=== PATIENT | female | born 1935 | race African-American/Black ===

== ENCOUNTER 2017-10-28 20:55 | Inpatient (IN) ==
[2017-10-28] MEDS ORDERED: PANTOPRAZOLE 40 MG VIAL IV STA (21:42)
[2017-10-28] MEDS ORDERED: METOCLOPRAMIDE 10 MG/2 ML VIAL IV STA (21:42)
[2017-10-28] MEDS ORDERED: ONDANSETRON 4 MG/2 ML VIAL IV STA (21:42)
[2017-10-28 22:20] LABS: Basophils % 0.3 % (0.0-0.8); Eosinophils # 0.1 10*3/uL (0.0-0.87); Eosinophils % 1.2 % (0.00-10.9); Hematocrit 34.3 VOL% (35.7-47.0); Hemoglobin 11.7 GM/DL (12.0-16.0); Immature Granulocytes % 1.6 %; Immature Granulocytes Absolute 0.11 #; Lymphocytes # 1.5 10*3/uL (1.4-4.0); Lymphocytes % 21.3 % (21.3-54.2); Mean Corpuscular HGB Conc 34.1 GM/DL (32-36); Mean Corpuscular Hemoglobin 32 PG (27-34); Mean Corpuscular Volume 94.5 FL (87-102); Mean Platelet Volume 10.1 FL (9.6-12.0); Neutrophils # 4.2 10*3/uL (1.4-7.4); Neutrophils % 60.6 % (38.7-73.9); Platelet Count 179 T/CUMM (130-400); Red Blood Count 3.63 MC/CUMM (3.8-5.5); Red Cell Distribution Width 12.1 % (9.3-17.3); White Blood Count 6.9 T/CUMM (4-12)
[2017-10-28 22:37] LABS: Apearance,Urine CLEAR (Clear); Bilirubin,Urine Negative (Negative); Blood, Urine Negative (Negative); Glucose,Urine (UA) Negative (Negative); Hyaline Casts,Urine 4 /LPF (0-3); Ketones,Urine Negative (Negative); Mucus,Urine Occasional /LPF (Occasional); Nitrite,Urine Positive (Negative); Protein,Urine Negative; Squamous Epithelial Cell,Urine Occasional /HPF (0-10); Urine Color Amber (Yellow); Urine Specific Gravity 1.008 (1.001-1.035); WBC,Urine <1 /HPF (0-6)
[2017-10-28] MEDS ORDERED: LEVOFLOXACIN INJ 500 MG in PREMIX 1 EACH IV STA (22:40)
[2017-10-28 22:41] LABS: Albumin 3.5 G/DL (3.4-5.0); Osmolality,Calculated 265.1 MOS/KG (273-304); Potassium 4.5 MMOL/L (3.5-5.1); Total Protein 7.6 G/DL (6.4-8.3)
[2017-10-28 22:49] LABS: INR 0.9
[2017-10-28] MEDS ORDERED: SODIUM CHLORIDE 0.9% 1,000 ML IV STA (22:58)
[2017-10-29] MEDS ORDERED: PROMETHAZINE INJ 12.5 MG in SODIUM CHLORIDE 0.9% 50 ML IV STA (00:16)
[2017-10-29] MEDS ORDERED: MEPERIDINE 25 MG/1 ML VIAL IV STA (00:16)
[2017-10-29] MEDS ORDERED: PROMETHAZINE 25 MG/1 ML VIAL ONE (00:26)
[2017-10-29] MEDS ORDERED: ZALEPLON 5 MG CAPSULE PO PRN (02:30)
[2017-10-29] MEDS ORDERED: DEXTROSE 50% 25 GM/50 ML VIAL IV PRN (02:55)
[2017-10-29] MEDS ORDERED: GLUCAGON 1 MG VIAL IM PRN (02:55)
[2017-10-29 03:14] LABS: Basophils % 0.4 % (0.0-0.8); Eosinophils % 0.7 % (0.00-10.9); Hematocrit 30.5 VOL% (35.7-47.0); Hemoglobin 10.3 GM/DL (12.0-16.0); Immature Granulocytes % 1.5 %; Immature Granulocytes Absolute 0.08 #; Lymphocytes % 19.3 % (21.3-54.2); Mean Corpuscular HGB Conc 33.8 GM/DL (32-36); Mean Corpuscular Hemoglobin 33 PG (27-34); Mean Corpuscular Volume 96.5 FL (87-102); Mean Platelet Volume 9.5 FL (9.6-12.0); Monocytes # 0.8 10*3/uL (0.11-0.8); Monocytes % 14.1 % (1.7-12.7); Neutrophils # 3.4 10*3/uL (1.4-7.4); Platelet Count 155 T/CUMM (130-400); Red Blood Count 3.16 MC/CUMM (3.8-5.5); Red Cell Distribution Width 11.9 % (9.3-17.3); White Blood Count 5.4 T/CUMM (4-12)
[2017-10-29 03:39] LABS: Calcium 8.4 MG/DL (8.5-10.1); Osmolality,Calculated 270.7 MOS/KG (273-304); Potassium 4.3 MMOL/L (3.5-5.1)
[2017-10-29] MEDS: INSULIN REGULAR 100 UNIT/ML SUBCUT SCH ×4 (08:04→20:01)
[2017-10-29] MEDS: ENOXAPARIN 30 MG/0.3 ML SYRINGE SUBCUT SCH (08:59)
[2017-10-29] MEDS: FAMOTIDINE 20 MG TABLET PO SCH (08:59)
[2017-10-29] MEDS: DOCUSATE SODIUM 100 MG CAPSULE PO SCH ×2 (08:59→20:25)
[2017-10-29] MEDS: ONDANSETRON 4 MG/2 ML VIAL IV PRN (11:15)
[2017-10-29] MEDS: BISACODYL 5 MG TABLET PO PRN (20:25)
[2017-10-29] MEDS: SERTRALINE 50 MG TABLET PO SCH (20:25)
[2017-10-29] MEDS: LEVOFLOXACIN INJ 250 MG in PREMIX 1 EACH IV SCH (22:42)
[2017-10-30 06:39] LABS: Basophils % 0.3 % (0.0-0.8); Eosinophils # 0.1 10*3/uL (0.0-0.87); Eosinophils % 1.6 % (0.00-10.9); Hematocrit 27.7 VOL% (35.7-47.0); Hemoglobin 9.3 GM/DL (12.0-16.0); Immature Granulocytes % 1.3 %; Immature Granulocytes Absolute 0.05 #; Lymphocytes % 25.2 % (21.3-54.2); Mean Corpuscular HGB Conc 33.6 GM/DL (32-36); Mean Corpuscular Hemoglobin 32 PG (27-34); Mean Corpuscular Volume 95.8 FL (87-102); Mean Platelet Volume 9.6 FL (9.6-12.0); Monocytes # 0.7 10*3/uL (0.11-0.8); Monocytes % 18.8 % (1.7-12.7); Neutrophils % 52.8 % (38.7-73.9); Platelet Count 134 T/CUMM (130-400); Red Blood Count 2.89 MC/CUMM (3.8-5.5); Red Cell Distribution Width 11.9 % (9.3-17.3); White Blood Count 3.8 T/CUMM (4-12)
[2017-10-30 07:06] LABS: Band Neutrophils 3 % (0-10); Eosinophils 3 % (0-10); Lymphocytes 24 % (20-55); Platelet Estimate Adequate; Segmented Neutrophils 56 % (50-85); Total Cells Counted 100
[2017-10-30 07:07] LABS: Anisocytosis 1+; Macrocytosis 1+; Smudge Cells Few
[2017-10-30] MEDS: ONDANSETRON 4 MG/2 ML VIAL IV PRN (07:09)
[2017-10-30 07:11] LABS: Calcium 8.5 MG/DL (8.5-10.1); Osmolality,Calculated 272.4 MOS/KG (273-304); Potassium 4.2 MMOL/L (3.5-5.1)
[2017-10-30] MEDS: DOCUSATE SODIUM 100 MG CAPSULE PO SCH ×2 (09:20→20:19)
[2017-10-30] MEDS: FAMOTIDINE 20 MG TABLET PO SCH (09:20)
[2017-10-30] MEDS: INSULIN REGULAR 100 UNIT/ML SUBCUT SCH ×4 (09:20→20:16)
[2017-10-30] MEDS: ENOXAPARIN 30 MG/0.3 ML SYRINGE SUBCUT SCH (09:20)
[2017-10-30] MEDS: BISACODYL 5 MG TABLET PO PRN (14:15)
[2017-10-30] MEDS: SERTRALINE 50 MG TABLET PO SCH (20:19)
[2017-10-30] MEDS ORDERED: SIMVASTATIN 20 MG TABLET PO SCH (21:00)
[2017-10-30] MEDS: LEVOFLOXACIN INJ 250 MG in PREMIX 1 EACH IV SCH (23:21)
[2017-10-31 06:10] LABS: Basophils % 0.3 % (0.0-0.8); Eosinophils # 0.1 10*3/uL (0.0-0.87); Eosinophils % 1.8 % (0.00-10.9); Hematocrit 27.8 VOL% (35.7-47.0); Hemoglobin 9.5 GM/DL (12.0-16.0); Immature Granulocytes % 1.6 %; Immature Granulocytes Absolute 0.06 #; Lymphocytes # 1.4 10*3/uL (1.4-4.0); Lymphocytes % 35.3 % (21.3-54.2); Mean Corpuscular HGB Conc 34.2 GM/DL (32-36); Mean Corpuscular Hemoglobin 32 PG (27-34); Mean Corpuscular Volume 94.6 FL (87-102); Monocytes # 0.8 10*3/uL (0.11-0.8); Neutrophils # 1.6 10*3/uL (1.4-7.4); Platelet Count 137 T/CUMM (130-400); Red Blood Count 2.94 MC/CUMM (3.8-5.5); Red Cell Distribution Width 11.9 % (9.3-17.3); White Blood Count 3.9 T/CUMM (4-12)
[2017-10-31 06:40] LABS: Calcium 8.6 MG/DL (8.5-10.1); Osmolality,Calculated 273.1 MOS/KG (273-304); Potassium 4.1 MMOL/L (3.5-5.1)
[2017-10-31 06:43] LABS: Risk Ratio 2.1; VLDL CHOLESTEROL 11.2 MG/DL
[2017-10-31 07:05] LABS: Atypical Lymphocytes Few; Band Neutrophils 5 % (0-10); Lymphocytes 47 % (20-55); Macrocytosis 2+; Platelet Estimate Normal; Segmented Neutrophils 40 % (50-85); Total Cells Counted 100
[2017-10-31] MEDS: INSULIN REGULAR 100 UNIT/ML SUBCUT SCH ×4 (07:19→20:30)
[2017-10-31] MEDS: ONDANSETRON 4 MG/2 ML VIAL IV PRN ×2 (08:14→17:14)
[2017-10-31] MEDS: FAMOTIDINE 20 MG TABLET PO SCH (09:27)
[2017-10-31] MEDS: ENOXAPARIN 30 MG/0.3 ML SYRINGE SUBCUT SCH (09:27)
[2017-10-31] MEDS: DOCUSATE SODIUM 100 MG CAPSULE PO SCH ×3 (09:27→20:29)
[2017-10-31] MEDS: PANTOPRAZOLE 40 MG TABLET PO SCH (15:14)
[2017-10-31] MEDS: LEVOFLOXACIN 250 MG TABLET PO SCH (15:14)
[2017-10-31] MEDS: SERTRALINE 50 MG TABLET PO SCH (20:30)
[2017-11-01 06:30] LABS: Basophils % 0.3 % (0.0-0.8); Eosinophils # 0.1 10*3/uL (0.0-0.87); Eosinophils % 1.6 % (0.00-10.9); Hemoglobin 9.1 GM/DL (12.0-16.0); Immature Granulocytes % 0.8 %; Immature Granulocytes Absolute 0.03 #; Lymphocytes # 1.1 10*3/uL (1.4-4.0); Lymphocytes % 29.4 % (21.3-54.2); Mean Corpuscular HGB Conc 32.5 GM/DL (32-36); Mean Corpuscular Hemoglobin 32 PG (27-34); Mean Corpuscular Volume 97.2 FL (87-102); Mean Platelet Volume 9.8 FL (9.6-12.0); Monocytes # 0.6 10*3/uL (0.11-0.8); Monocytes % 16.2 % (1.7-12.7); Neutrophils % 51.7 % (38.7-73.9); Platelet Count 124 T/CUMM (130-400); Red Blood Count 2.88 MC/CUMM (3.8-5.5); Red Cell Distribution Width 11.7 % (9.3-17.3); White Blood Count 3.8 T/CUMM (4-12)
[2017-11-01 07:13] LABS: Calcium 8.3 MG/DL (8.5-10.1); Osmolality,Calculated 267.5 MOS/KG (273-304); Potassium 4.1 MMOL/L (3.5-5.1)
[2017-11-01] MEDS: INSULIN REGULAR 100 UNIT/ML SUBCUT SCH ×4 (07:30→22:19)
[2017-11-01 07:42] LABS: Band Neutrophils 2 % (0-10); Eosinophils 4 % (0-10); Lymphocytes 34 % (20-55); Segmented Neutrophils 45 % (50-85); Total Cells Counted 100
[2017-11-01 07:43] LABS: Atypical Lymphocytes Few; Hypochromasia 1+; Macrocytosis Slight; Ovalocytes Slight; Platelet Estimate Normal
[2017-11-01] MEDS: ONDANSETRON 4 MG/2 ML VIAL IV PRN (08:03)
[2017-11-01] MEDS: LEVOFLOXACIN 250 MG TABLET PO SCH (10:31)
[2017-11-01] MEDS: DOCUSATE SODIUM 100 MG CAPSULE PO SCH ×2 (10:31→22:19)
[2017-11-01] MEDS: PANTOPRAZOLE 40 MG TABLET PO SCH (10:31)
[2017-11-01] MEDS: ENOXAPARIN 30 MG/0.3 ML SYRINGE SUBCUT SCH (10:31)
[2017-11-01] MEDS: FAMOTIDINE 20 MG TABLET PO SCH (10:31)
[2017-11-01] MEDS: PHENAZOPYRIDINE 95 MG TABLET PO SCH (16:47)
[2017-11-01] MEDS: SERTRALINE 50 MG TABLET PO SCH (22:19)
[2017-11-02] MEDS: BISACODYL 5 MG TABLET PO PRN (02:11)
[2017-11-02 06:46] LABS: Basophils % 0.2 % (0.0-0.8); Eosinophils # 0.1 10*3/uL (0.0-0.87); Eosinophils % 2.5 % (0.00-10.9); Hematocrit 28.3 VOL% (35.7-47.0); Hemoglobin 9.5 GM/DL (12.0-16.0); Immature Granulocytes % 0.7 %; Immature Granulocytes Absolute 0.03 #; Lymphocytes # 1.4 10*3/uL (1.4-4.0); Lymphocytes % 30.8 % (21.3-54.2); Mean Corpuscular HGB Conc 33.6 GM/DL (32-36); Mean Corpuscular Hemoglobin 32 PG (27-34); Mean Corpuscular Volume 95.3 FL (87-102); Mean Platelet Volume 9.5 FL (9.6-12.0); Monocytes # 0.5 10*3/uL (0.11-0.8); Monocytes % 11.5 % (1.7-12.7); Neutrophils # 2.4 10*3/uL (1.4-7.4); Neutrophils % 54.3 % (38.7-73.9); Platelet Count 127 T/CUMM (130-400); Red Blood Count 2.97 MC/CUMM (3.8-5.5); Red Cell Distribution Width 11.6 % (9.3-17.3); White Blood Count 4.4 T/CUMM (4-12)
[2017-11-02 07:19] LABS: Calcium 8.1 MG/DL (8.5-10.1); Osmolality,Calculated 258.1 MOS/KG (273-304); Potassium 4.3 MMOL/L (3.5-5.1)
[2017-11-02] MEDS: INSULIN REGULAR 100 UNIT/ML SUBCUT SCH ×4 (07:34→20:07)
[2017-11-02] MEDS: PHENAZOPYRIDINE 95 MG TABLET PO SCH ×3 (08:37→17:41)
[2017-11-02] MEDS: DOCUSATE SODIUM 100 MG CAPSULE PO SCH ×2 (08:40→21:28)
[2017-11-02] MEDS: LEVOFLOXACIN 250 MG TABLET PO SCH (08:40)
[2017-11-02] MEDS: PANTOPRAZOLE 40 MG TABLET PO SCH (08:41)
[2017-11-02] MEDS: FAMOTIDINE 20 MG TABLET PO SCH (08:41)
[2017-11-02] MEDS: POLYETHYLENE GLYCOL POWDER 17 GM PACK PO PRN (08:42)
[2017-11-02] MEDS: ONDANSETRON 4 MG/2 ML VIAL IV PRN (10:50)
[2017-11-02] MEDS: SERTRALINE 50 MG TABLET PO SCH (21:28)
[2017-11-03 05:11] LABS: Basophils % 0.2 % (0.0-0.8); Eosinophils # 0.1 10*3/uL (0.0-0.87); Eosinophils % 2.9 % (0.00-10.9); Hematocrit 25.4 VOL% (35.7-47.0); Hemoglobin 8.7 GM/DL (12.0-16.0); Immature Granulocytes % 0.9 %; Immature Granulocytes Absolute 0.04 #; Lymphocytes # 1.4 10*3/uL (1.4-4.0); Lymphocytes % 29.9 % (21.3-54.2); Mean Corpuscular HGB Conc 34.3 GM/DL (32-36); Mean Corpuscular Hemoglobin 32 PG (27-34); Mean Platelet Volume 9.6 FL (9.6-12.0); Monocytes # 0.5 10*3/uL (0.11-0.8); Monocytes % 11.9 % (1.7-12.7); Neutrophils # 2.5 10*3/uL (1.4-7.4); Neutrophils % 54.2 % (38.7-73.9); Platelet Count 117 T/CUMM (130-400); Red Blood Count 2.73 MC/CUMM (3.8-5.5); Red Cell Distribution Width 11.4 % (9.3-17.3); White Blood Count 4.6 T/CUMM (4-12)
[2017-11-03 05:33] LABS: Calcium 8.1 MG/DL (8.5-10.1); Osmolality,Calculated 260.9 MOS/KG (273-304); Potassium 4.6 MMOL/L (3.5-5.1)
[2017-11-03] MEDS: INSULIN REGULAR 100 UNIT/ML SUBCUT SCH ×4 (08:13→20:34)
[2017-11-03] MEDS: DOCUSATE SODIUM 100 MG CAPSULE PO SCH ×2 (09:55→20:33)
[2017-11-03] MEDS: PHENAZOPYRIDINE 95 MG TABLET PO SCH ×3 (09:55→17:08)
[2017-11-03] MEDS: PANTOPRAZOLE 40 MG TABLET PO SCH (12:49)
[2017-11-03] MEDS: LEVOFLOXACIN 250 MG TABLET PO SCH (12:49)
[2017-11-03] MEDS: FAMOTIDINE 20 MG TABLET PO SCH (12:49)
[2017-11-03] MEDS: SODIUM CHLORIDE 0.9% 1,000 ML IV SCH (13:43)
[2017-11-03] MEDS: BISACODYL 5 MG TABLET PO PRN (15:34)
[2017-11-03] MEDS: POLYETHYLENE GLYCOL POWDER 17 GM PACK PO PRN (18:49)
[2017-11-03] MEDS: SERTRALINE 50 MG TABLET PO SCH (20:34)
[2017-11-04 05:54] LABS: Calcium 8.6 MG/DL (8.5-10.1); Osmolality,Calculated 266.5 MOS/KG (273-304); Potassium 4.5 MMOL/L (3.5-5.1)
[2017-11-04] MEDS: PHENAZOPYRIDINE 95 MG TABLET PO SCH ×3 (08:00→18:37)
[2017-11-04] MEDS: INSULIN REGULAR 100 UNIT/ML SUBCUT SCH ×4 (08:02→21:13)
[2017-11-04] MEDS ORDERED: LIDOCAINE 2% 5 ML VIAL ONE (10:00)
[2017-11-04] MEDS ORDERED: PROPOFOL 200 MG/20 ML VIAL IV ONE (10:00)
[2017-11-04] MEDS ORDERED: BISACODYL 5 MG TABLET PO ONE (12:00)
[2017-11-04] MEDS: LEVOFLOXACIN 250 MG TABLET PO SCH (12:45)
[2017-11-04] MEDS: FAMOTIDINE 20 MG TABLET PO SCH (12:45)
[2017-11-04] MEDS: DOCUSATE SODIUM 100 MG CAPSULE PO SCH ×2 (12:46→21:12)
[2017-11-04] MEDS: PANTOPRAZOLE 40 MG TABLET PO SCH (12:46)
[2017-11-04] MEDS ORDERED: SODIUM CHLORIDE 0.9% 1,000 ML IV SCH (14:30)
[2017-11-04] MEDS: SODIUM CHLORIDE 0.9% 1,000 ML IV SCH (14:57)
[2017-11-04] MEDS ORDERED: POLYETHYLENE GLYCOL POWDER 255 GM BOTTLE PO ONE (18:00)
[2017-11-04] MEDS: SERTRALINE 50 MG TABLET PO SCH (21:13)
[2017-11-05 06:24] LABS: Basophils % 0.4 % (0.0-0.8); Eosinophils # 0.1 10*3/uL (0.0-0.87); Eosinophils % 1.7 % (0.00-10.9); Hematocrit 29.8 VOL% (35.7-47.0); Hemoglobin 9.9 GM/DL (12.0-16.0); Immature Granulocytes % 1.1 %; Immature Granulocytes Absolute 0.06 #; Lymphocytes # 1.4 10*3/uL (1.4-4.0); Mean Corpuscular HGB Conc 33.2 GM/DL (32-36); Mean Corpuscular Hemoglobin 32 PG (27-34); Mean Corpuscular Volume 96.1 FL (87-102); Mean Platelet Volume 9.7 FL (9.6-12.0); Monocytes # 0.6 10*3/uL (0.11-0.8); Monocytes % 10.9 % (1.7-12.7); Neutrophils # 3.2 10*3/uL (1.4-7.4); Neutrophils % 58.9 % (38.7-73.9); Platelet Count 123 T/CUMM (130-400); Red Cell Distribution Width 11.8 % (9.3-17.3); White Blood Count 5.3 T/CUMM (4-12)
[2017-11-05 06:51] LABS: Calcium 8.2 MG/DL (8.5-10.1); Osmolality,Calculated 255.2 MOS/KG (273-304); Potassium 3.6 MMOL/L (3.5-5.1)
[2017-11-05] MEDS: INSULIN REGULAR 100 UNIT/ML SUBCUT SCH ×4 (08:06→22:06)
[2017-11-05] MEDS: DOCUSATE SODIUM 100 MG CAPSULE PO SCH ×2 (10:25→22:06)
[2017-11-05] MEDS: PHENAZOPYRIDINE 95 MG TABLET PO SCH ×3 (10:25→17:42)
[2017-11-05] MEDS: FAMOTIDINE 20 MG TABLET PO SCH (10:25)
[2017-11-05] MEDS: LEVOFLOXACIN 250 MG TABLET PO SCH (10:26)
[2017-11-05] MEDS: PANTOPRAZOLE 40 MG TABLET PO SCH (10:26)
[2017-11-05] MEDS: ONDANSETRON 4 MG/2 ML VIAL IV PRN (10:57)
[2017-11-05] MEDS: SODIUM CHLORIDE 1 GM TABLET PO SCH ×2 (14:58→22:06)
[2017-11-05] MEDS ORDERED: MAGNESIUM CITRATE 300 ML BOTTLE PO ONE (18:00)
[2017-11-05] MEDS: SERTRALINE 50 MG TABLET PO SCH (22:06)
[2017-11-06 06:08] LABS: Basophils % 0.2 % (0.0-0.8); Eosinophils # 0.1 10*3/uL (0.0-0.87); Eosinophils % 2.2 % (0.00-10.9); Hemoglobin 8.9 GM/DL (12.0-16.0); Immature Granulocytes Absolute 0.04 #; Lymphocytes % 24.1 % (21.3-54.2); Mean Corpuscular HGB Conc 34.2 GM/DL (32-36); Mean Corpuscular Hemoglobin 32 PG (27-34); Mean Corpuscular Volume 92.9 FL (87-102); Mean Platelet Volume 9.5 FL (9.6-12.0); Monocytes # 0.6 10*3/uL (0.11-0.8); Monocytes % 14.7 % (1.7-12.7); Neutrophils # 2.3 10*3/uL (1.4-7.4); Neutrophils % 57.8 % (38.7-73.9); Platelet Count 116 T/CUMM (130-400); Red Cell Distribution Width 11.9 % (9.3-17.3)
[2017-11-06 06:32] LABS: Calcium 8.1 MG/DL (8.5-10.1); Osmolality,Calculated 258.8 MOS/KG (273-304); Potassium 3.7 MMOL/L (3.5-5.1)
[2017-11-06] MEDS: INSULIN REGULAR 100 UNIT/ML SUBCUT SCH ×4 (07:14→21:20)
[2017-11-06] MEDS ORDERED: LIDOCAINE 1% 5 ML VIAL ONE (09:00)
[2017-11-06] MEDS ORDERED: PROPOFOL 200 MG/20 ML VIAL IV ONE (09:00)
[2017-11-06] MEDS: DOCUSATE SODIUM 100 MG CAPSULE PO SCH ×2 (10:14→21:20)
[2017-11-06] MEDS: PHENAZOPYRIDINE 95 MG TABLET PO SCH ×3 (10:14→18:56)
[2017-11-06] MEDS: FAMOTIDINE 20 MG TABLET PO SCH (10:14)
[2017-11-06] MEDS: PANTOPRAZOLE 40 MG TABLET PO SCH (10:15)
[2017-11-06] MEDS: SODIUM CHLORIDE 1 GM TABLET PO SCH ×2 (10:15→21:20)
[2017-11-06] MEDS: LEVOFLOXACIN 250 MG TABLET PO SCH (12:51)
[2017-11-06] MEDS: SERTRALINE 50 MG TABLET PO SCH (21:20)
[2017-11-07] MEDS: INSULIN REGULAR 100 UNIT/ML SUBCUT SCH ×4 (07:46→20:41)
[2017-11-07] MEDS: SODIUM CHLORIDE 1 GM TABLET PO SCH ×2 (09:18→20:43)
[2017-11-07] MEDS: LEVOFLOXACIN 250 MG TABLET PO SCH (09:18)
[2017-11-07] MEDS: FAMOTIDINE 20 MG TABLET PO SCH (09:18)
[2017-11-07] MEDS: DOCUSATE SODIUM 100 MG CAPSULE PO SCH ×2 (09:18→20:43)
[2017-11-07] MEDS: PHENAZOPYRIDINE 95 MG TABLET PO SCH ×3 (09:18→17:41)
[2017-11-07] MEDS: PANTOPRAZOLE 40 MG TABLET PO SCH (09:18)
[2017-11-07] MEDS ORDERED: MYLANTA/LIDO VISC 2:1 300 ML BOTTLE SWISH/SPIT PRN (13:18)
[2017-11-07] MEDS ORDERED: PHENOL 1.4% THROAT SPRAY 177 ML BOTTLE PO PRN (13:18)
[2017-11-07] MEDS: SERTRALINE 50 MG TABLET PO SCH (20:43)
[2017-11-08 05:55] LABS: Basophils % 0.3 % (0.0-0.8); Eosinophils # 0.1 10*3/uL (0.0-0.87); Eosinophils % 2.3 % (0.00-10.9); Hematocrit 25.2 VOL% (35.7-47.0); Hemoglobin 8.3 GM/DL (12.0-16.0); Immature Granulocytes % 0.6 %; Immature Granulocytes Absolute 0.02 #; Lymphocytes # 1.1 10*3/uL (1.4-4.0); Lymphocytes % 30.5 % (21.3-54.2); Mean Corpuscular HGB Conc 32.9 GM/DL (32-36); Mean Corpuscular Hemoglobin 32 PG (27-34); Mean Corpuscular Volume 96.9 FL (87-102); Mean Platelet Volume 9.3 FL (9.6-12.0); Monocytes # 0.5 10*3/uL (0.11-0.8); Monocytes % 14.4 % (1.7-12.7); Neutrophils # 1.8 10*3/uL (1.4-7.4); Neutrophils % 51.9 % (38.7-73.9); Platelet Count 107 T/CUMM (130-400); Red Cell Distribution Width 12.4 % (9.3-17.3); White Blood Count 3.5 T/CUMM (4-12)
[2017-11-08 06:23] LABS: Calcium 8.3 MG/DL (8.5-10.1); Osmolality,Calculated 267.1 MOS/KG (273-304); Potassium 3.9 MMOL/L (3.5-5.1)
[2017-11-08] MEDS: INSULIN REGULAR 100 UNIT/ML SUBCUT SCH ×2 (08:01→12:23)
[2017-11-08] MEDS: PANTOPRAZOLE 40 MG TABLET PO SCH (10:08)
[2017-11-08] MEDS: LEVOFLOXACIN 250 MG TABLET PO SCH (10:08)
[2017-11-08] MEDS: PHENAZOPYRIDINE 95 MG TABLET PO SCH ×2 (10:08→12:36)
[2017-11-08] MEDS: DOCUSATE SODIUM 100 MG CAPSULE PO SCH (10:09)
[2017-11-08] MEDS: FAMOTIDINE 20 MG TABLET PO SCH (10:09)
[2017-11-08] MEDS: SODIUM CHLORIDE 1 GM TABLET PO SCH (10:09)
[2017-11-08 11:21] VITALS: BP 118/65
== END 2017-11-08 15:35 | disposition home or self-care (01) | DRG 392 ==
LOC: N.ED 20:55 → N.EDINP 10-29 02:30 → SUATTDRO 10-29 02:30 → N.3E 10-29 03:13
PROVIDERS: ATTEND Internal Medicine

== ENCOUNTER 2018-03-29 18:08 | Inpatient (IN) ==
[2018-03-29] MEDS ORDERED: LORazepam 1 MG TABLET PO PRN (21:21)
[2018-03-29] MEDS ORDERED: ACETAMINOPHEN 325 MG TABLET PO PRN (21:23)
[2018-03-29] MEDS ORDERED: DEXTROSE 5% NACL 0.45% 1,000 ML IV SCH (21:30)
[2018-03-30 03:35] LABS: Apearance,Urine CLEAR (Clear); Bacteria,Urine Occasional /HPF (Few); Bilirubin,Urine Negative (Negative); Blood, Urine Negative (Negative); Glucose,Urine (UA) Negative (Negative); Hyaline Casts,Urine 1 /LPF (0-3); Ketones,Urine Negative (Negative); Mucus,Urine Occasional /LPF (Occasional); Nitrite,Urine Negative (Negative); Protein,Urine Negative; RBC,Urine 1 /HPF (0-4); Squamous Epithelial Cell,Urine Occasional /HPF (0-10); Urine Color Yellow (Yellow); Urine Specific Gravity 1.014 (1.001-1.035); Urine Urobilinogen < 2.0 EU/DL (0.2-1.0); WBC,Urine 6 /HPF (0-6)
[2018-03-30 05:28] LABS: Basophils % 0.7 % (0.0-0.8); Eosinophils # 0.1 10*3/uL (0.0-0.87); Hematocrit 28.6 VOL% (35.7-47.0); Hemoglobin 9.2 GM/DL (12.0-16.0); Immature Granulocytes % 0.3 %; Immature Granulocytes Absolute 0.01 #; Lymphocytes # 1.2 10*3/uL (1.4-4.0); Mean Corpuscular HGB Conc 32.2 GM/DL (32-36); Mean Corpuscular Hemoglobin 31 PG (27-34); Mean Corpuscular Volume 97.3 FL (87-102); Mean Platelet Volume 10.5 FL (9.6-12.0); Monocytes # 0.4 10*3/uL (0.11-0.8); Monocytes % 14.5 % (1.7-12.7); Neutrophils # 1.3 10*3/uL (1.4-7.4); Neutrophils % 42.5 % (38.7-73.9); Platelet Count 128 T/CUMM (130-400); Red Blood Count 2.94 MC/CUMM (3.8-5.5); Red Cell Distribution Width 12.7 % (9.3-17.3)
[2018-03-30 05:47] LABS: Albumin 2.8 G/DL (3.4-5.0); Osmolality,Calculated 274.8 MOS/KG (273-304); Potassium 2.9 MMOL/L (3.5-5.1); Total Protein 5.8 G/DL (6.4-8.3)
[2018-03-30 05:48] LABS: Hypochromasia 1+
[2018-03-30 05:49] LABS: Macrocytosis Slight; Platelet Estimate Adequate
[2018-03-30] MEDS: amLODIPine 10 MG TABLET PO SCH (08:33)
[2018-03-30] MEDS: FUROSEMIDE 20 MG TABLET PO SCH ×2 (08:33→15:48)
[2018-03-30] MEDS: PANTOPRAZOLE 40 MG TABLET PO SCH (08:33)
[2018-03-30] MEDS ORDERED: ENOXAPARIN 40 MG/0.4 ML SYRINGE SUBCUT SCH (09:00)
[2018-03-30 09:34] LABS: Calcium 8.2 MG/DL (8.5-10.1); Potassium 3.4 MMOL/L (3.5-5.1)
[2018-03-30] MEDS: BISACODYL 5 MG TABLET PO PRN (19:15)
[2018-03-30] MEDS: ZALEPLON 5 MG CAPSULE PO PRN (23:40)
[2018-03-31 06:37] LABS: Basophils % 0.3 % (0.0-0.8); Eosinophils # 0.2 10*3/uL (0.0-0.87); Eosinophils % 5.4 % (0.00-10.9); Hematocrit 29.6 VOL% (35.7-47.0); Hemoglobin 9.4 GM/DL (12.0-16.0); Immature Granulocytes % 0.6 %; Immature Granulocytes Absolute 0.02 #; Lymphocytes # 1.3 10*3/uL (1.4-4.0); Lymphocytes % 37.5 % (21.3-54.2); Mean Corpuscular HGB Conc 31.8 GM/DL (32-36); Mean Corpuscular Hemoglobin 31 PG (27-34); Mean Corpuscular Volume 98.7 FL (87-102); Mean Platelet Volume 10.4 FL (9.6-12.0); Monocytes # 0.5 10*3/uL (0.11-0.8); Monocytes % 15.3 % (1.7-12.7); Neutrophils # 1.4 10*3/uL (1.4-7.4); Neutrophils % 40.9 % (38.7-73.9); Platelet Count 133 T/CUMM (130-400); Red Cell Distribution Width 12.9 % (9.3-17.3); White Blood Count 3.3 T/CUMM (4-12)
[2018-03-31 07:00] LABS: Anisocytosis Slight; Platelet Estimate Adequate
[2018-03-31 07:01] LABS: Potassium 3.2 MMOL/L (3.5-5.1)
[2018-03-31] MEDS ORDERED: LIDOCAINE 2% 5 ML VIAL ONE (09:00)
[2018-03-31] MEDS ORDERED: PROPOFOL 200 MG/20 ML VIAL IV ONE (09:00)
[2018-03-31] MEDS: amLODIPine 10 MG TABLET PO SCH (09:43)
[2018-03-31] MEDS: FUROSEMIDE 20 MG TABLET PO SCH ×2 (09:43→14:59)
[2018-03-31] MEDS: PANTOPRAZOLE 40 MG TABLET PO SCH (09:43)
[2018-03-31] MEDS: BISACODYL 5 MG TABLET PO PRN (20:30)
[2018-03-31] MEDS: ZALEPLON 5 MG CAPSULE PO PRN (23:40)
[2018-04-01] MEDS: ONDANSETRON 4 MG/2 ML VIAL IV PRN ×2 (01:01→09:07)
[2018-04-01] MEDS: FUROSEMIDE 20 MG TABLET PO SCH (09:07)
[2018-04-01] MEDS: PANTOPRAZOLE 40 MG TABLET PO SCH (09:07)
[2018-04-01] MEDS: amLODIPine 10 MG TABLET PO SCH (09:07)
[2018-04-01 11:52] VITALS: BP 146/74
== END 2018-04-01 13:00 | disposition home or self-care (01) | DRG 392 ==
LOC: N.2E 19:49 → SUATTDRO 19:49
PROVIDERS: ADMIT Internal Medicine; ATTEND Internal Medicine Geriatric Medicine

== ENCOUNTER 2019-05-07 22:22 | Inpatient (IN) ==
[2019-05-08] LABS: Basophils % 0.3 % (0.0-0.8); Eosinophils % 0.2 % (0.00-10.9); Hematocrit 34.8 VOL% (35.7-47.0); Immature Granulocytes % 4.4 %; Immature Granulocytes Absolute 0.46 #; Lymphocytes % 9.7 % (21.3-54.2); Mean Corpuscular HGB Conc 34.5 GM/DL (32-36); Mean Platelet Volume 10.2 FL (9.6-12.0); Monocytes % 7.4 % (1.7-12.7); Platelet Count 132 T/CUMM (130-400); Red Blood Count 3.74 MC/CUMM (3.8-5.5); Red Cell Distribution Width 12.7 % (9.3-17.3); White Blood Count 10.5 T/CUMM (4-12)
[2019-05-08 00:19] LABS: Alanine Aminotransferase 16 U/L (13-56); Albumin 3.8 G/DL (3.4-5.0); Alkaline Phosphatase 53 U/L (45-117); Aspartate Amino Transferase 28 U/L (0-37); Blood Urea Nitrogen 74 MG/DL (7-18); Calcium 9.6 MG/DL (8.5-10.1); Estimated Glom Filtration Rate 19 ML/MIN; Glucose 147 MG/DL (74-106); Osmolality,Calculated 284.8 MOS/KG (273-304); Total Protein 7.5 G/DL (6.4-8.3)
[2019-05-08 00:22] LABS: Troponin I 0.189 NG/ML (0.00-0.045)
[2019-05-08] MEDS ORDERED: SODIUM CHLORIDE 0.9% 1,000 ML IV STA (00:28)
[2019-05-08 00:51] LABS: Apearance,Urine Cloudy (Clear); Glucose,Urine (UA) Negative (Negative); Protein,Urine 30 MG/DL; Urine Color Dark Yellow (Yellow); Urine Specific Gravity 1.035 (1.001-1.035)
[2019-05-08 00:52] LABS: Bilirubin,Urine 2+ mg/dL (Negative); Blood, Urine Negative (Negative); Ketones,Urine Negative (Negative); Nitrite,Urine Negative (Negative)
[2019-05-08 00:54] LABS: Amorphous Crystals,Urine Many /HPF (Few); RBC,Urine 6 /HPF (0-4); Squamous Epithelial Cell,Urine Moderate /HPF (0-10); WBC,Urine 6 /HPF (0-6)
[2019-05-08] MEDS ORDERED: ONDANSETRON 4 MG/2 ML VIAL IV PRN (03:19)
[2019-05-08] MEDS ORDERED: GLUCAGON 1 MG VIAL IM PRN (03:19)
[2019-05-08] MEDS ORDERED: DEXTROSE 50% 25 GM/50 ML SYRINGE IV PRN (03:19)
[2019-05-08] MEDS ORDERED: LEVOFLOXACIN INJ 500 MG in PREMIX 1 EACH IV ONE (03:30)
[2019-05-08] MEDS: SODIUM CHLORIDE 0.9% 1,000 ML IV SCH ×2 (03:40→16:50)
[2019-05-08 04:27] LABS: Thyroid Stimulating Hormone 2.79 uIU/ml (0.358-3.74)
[2019-05-08 07:12] LABS: Basophils % 0.3 % (0.0-0.8); Eosinophils % 0.3 % (0.00-10.9); Hematocrit 34.2 VOL% (35.7-47.0); Hemoglobin 11.5 GM/DL (12.0-16.0); Immature Granulocytes Absolute 0.37 #; Lymphocytes # 0.9 10*3/uL (1.4-4.0); Lymphocytes % 9.7 % (21.3-54.2); Mean Corpuscular HGB Conc 33.6 GM/DL (32-36); Mean Corpuscular Volume 95.3 FL (87-102); Mean Platelet Volume 10.2 FL (9.6-12.0); Monocytes % 7.5 % (1.7-12.7); Neutrophils % 78.2 % (38.7-73.9); Platelet Count 117 T/CUMM (130-400); Red Blood Count 3.59 MC/CUMM (3.8-5.5); Red Cell Distribution Width 12.8 % (9.3-17.3); White Blood Count 9.2 T/CUMM (4-12)
[2019-05-08] MEDS: INSULIN LISPRO 100 UNIT/ML SUBCUT SCH ×4 (07:24→23:02)
[2019-05-08 07:27] LABS: Calcium 9.1 MG/DL (8.5-10.1); Osmolality,Calculated 286.4 MOS/KG (273-304)
[2019-05-08 07:31] LABS: Risk Ratio 3.16; VLDL CHOLESTEROL 33.8 MG/DL
[2019-05-08] MEDS: ACETAMINOPHEN 325 MG TABLET PO PRN ×2 (10:14→23:43)
[2019-05-08] MEDS: ENOXAPARIN 30 MG/0.3 ML SYRINGE SUBCUT SCH (10:15)
[2019-05-08 12:05] LABS: Barbiturates Screen,Urine Negative (Negative); Benzodiazepines Screen,Urine Negative (Negative); Cannabinoid Screen,Urine Negative (Negative); Opiate Screen,Urine Positive (Negative); Phencyclidine Screen,Urine Negative (Negative)
[2019-05-08] MEDS: amLODIPine 10 MG TABLET PO SCH (13:11)
[2019-05-08] MEDS ORDERED: MAGNESIUM SULF RIDER 2 GM in PREMIX 1 EACH IV PRN (14:07)
[2019-05-08] MEDS ORDERED: MAGNESIUM SULF RIDER 4 GM in PREMIX 1 EACH IV PRN (14:07)
[2019-05-08] MEDS ORDERED: POTASSIUM CHLORIDE 20 MEQ TABLET PO PRN (14:07)
[2019-05-08] MEDS: FUROSEMIDE 20 MG TABLET PO SCH (16:43)
[2019-05-09] MEDS: SODIUM CHLORIDE 0.9% 1,000 ML IV SCH ×2 (00:15→10:10)
[2019-05-09] MEDS ORDERED: LEVOFLOXACIN INJ 250 MG in PREMIX 1 EACH IV SCH (04:00)
[2019-05-09] MEDS: INSULIN LISPRO 100 UNIT/ML SUBCUT SCH ×2 (08:04→12:29)
[2019-05-09 08:29] LABS: Basophils % 0.2 % (0.0-0.8); Eosinophils % 0.3 % (0.00-10.9); Hematocrit 31.8 VOL% (35.7-47.0); Hemoglobin 10.8 GM/DL (12.0-16.0); Immature Granulocytes % 3.5 %; Immature Granulocytes Absolute 0.31 #; Lymphocytes # 0.8 10*3/uL (1.4-4.0); Lymphocytes % 9.2 % (21.3-54.2); Mean Corpuscular Volume 95.5 FL (87-102); Mean Platelet Volume 9.9 FL (9.6-12.0); Monocytes % 7.5 % (1.7-12.7); NRBC # 0.02 10*3/uL; Neutrophils % 79.3 % (38.7-73.9); Platelet Count 114 T/CUMM (130-400); Red Blood Count 3.33 MC/CUMM (3.8-5.5); White Blood Count 8.8 T/CUMM (4-12)
[2019-05-09] MEDS: amLODIPine 10 MG TABLET PO SCH (08:39)
[2019-05-09] MEDS: FUROSEMIDE 20 MG TABLET PO SCH (08:39)
[2019-05-09] MEDS: ENOXAPARIN 30 MG/0.3 ML SYRINGE SUBCUT SCH (08:39)
[2019-05-09 08:44] LABS: Calcium 8.9 MG/DL (8.5-10.1); Osmolality,Calculated 287.7 MOS/KG (273-304)
[2019-05-09] MEDS: ACETAMINOPHEN 325 MG TABLET PO PRN (10:48)
[2019-05-09 16:08] VITALS: BP 122/55
[2019-05-09] MEDS ORDERED: ATORVASTATIN 20 MG TABLET PO SCH (21:00)
== END 2019-05-09 17:00 | disposition home or self-care (01) | DRG 682 ==
LOC: N.ED 22:22 → N.EDINP 05-08 02:23 → SUATTDRO 05-08 02:23 → N.2E 05-08 02:59
PROVIDERS: ADMIT Family Medicine; ATTEND Internal Medicine